=== PATIENT | female | born 2000 | race Caucasian/White ===

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

== ENCOUNTER 2018-02-02 23:14 | Emergency (ER) | payer OTHER ==
[~2018-02-02] VITALS: Ht 165.1 cm; Wt 74.8 kg
[2018-02-03 00:14] VITALS: Ht 165.1 cm; Wt 74.8 kg
[2018-02-03 01:29] VITALS: BP 135/68
== END 2018-02-03 01:29 | disposition home or self-care (01) ==
LOC: ED 23:14
DX: R55 Syncope and collapse (principal); R42 Dizziness and giddiness; F12.90 Cannabis use, unspecified, uncomplicated